=== PATIENT | female | born 1985 | race Caucasian/White ===

== ENCOUNTER 2017-12-25 20:19 | Emergency (ER) | payer MEDICAID ==
[~2017-12-25] VITALS: Ht 157.5 cm; Wt 81.5 kg
[~2017-12-25 20:19] MED LIST: ALBU6.7H INH
[2017-12-25 21:15] VITALS: BP 104/68
[2017-12-25] MEDS ORDERED: CEPH-572 PO (21:50)
[2017-12-25] MEDS ORDERED: CLIN150C2 PO (21:50)
== END 2017-12-25 22:08 | disposition home or self-care (01) ==
LOC: ER 20:20
DX: O26.893 Other specified pregnancy related conditions, third trimester (principal); L03.312 Cellulitis of back [any part except buttock and flank]; J45.909 Unspecified asthma, uncomplicated; F11.90 Opioid use, unspecified, uncomplicated; Z79.899 Other long term (current) drug therapy; Z3A.32 32 weeks gestation of pregnancy
CPT/HCPCS: 99283

== ENCOUNTER 2021-04-03 19:27 | Emergency (ER) | payer MEDICAID ==
[~2021-04-03 19:27] MED LIST changes: -ALBU6.7H INH; +ALBU6.7H9 INH
== END 2021-04-03 20:26 | disposition left against medical advice (07) ==
LOC: ER 19:28
DX: Z53.21 Procedure and treatment not carried out due to patient leaving prior to being seen by health care provider (principal)

== ENCOUNTER 2021-08-28 00:58 | Emergency (ER) | payer MEDICAID ==
[~2021-08-28] VITALS: Ht 157.5 cm; Wt 72.7 kg
[2021-08-28 01:10] VITALS: BP 126/81
== END 2021-08-28 02:06 | disposition left against medical advice (07) ==
LOC: ER 00:59
DX: R07.9 Chest pain, unspecified (principal); Z53.21 Procedure and treatment not carried out due to patient leaving prior to being seen by health care provider
CPT/HCPCS: 93005

== ENCOUNTER 2023-02-25 13:02 | Emergency (ER) | payer MEDICAID ==
[~2023-02-25 13:02] MED LIST changes: +ALBU6.7H14 INH; -ALBU6.7H9 INH
== END 2023-02-25 15:47 | disposition left against medical advice (07) ==
LOC: ER 13:04
DX: O23.40 Unspecified infection of urinary tract in pregnancy, unspecified trimester (principal); Z53.21 Procedure and treatment not carried out due to patient leaving prior to being seen by health care provider